=== PATIENT | female | born 1990 | race Caucasian/White ===

== ENCOUNTER 2016-09-16 10:20 | Emergency (ER) | payer BC ==
[2016-09-16 10:27] VITALS: BP 147/79
--- NOTE | 2016-09-16 10:28 | ED ---
Lower Extremity - HPI Summary HPI Summary: 26 YEAR OLD FEMALE PRESENTS WITH LEFT HEEL PAIN. - History of Current Complaint Chief Complaint: UCLowerExtremity Stated Complaint: LEFT FOOT INJURY Time Seen by Provider: 09/16/16 10:27 - Allergies/Home Medications Allergies/Adverse Reactions: Allergies Allergy/AdvReac Type Severity Reaction Status Date / Time Oxycodone [From Roxicet] Allergy See Comment Verified 09/16/16 10:27 Penicillins [PCN] Allergy Unknown Verified 09/16/16 10:27 Reaction Details Home Medications: Home Medications Oral Control 1 tab PO DAILY 09/16/16 [History Confirmed 09/16/16] PMH/Surg Hx/FS Hx/Imm Hx Previously Healthy: Yes - Surgical History Surgery Procedure, Year, and Place: T&A Infectious Disease History: No Infectious Disease History: Denies: Traveled Outside the in Last 30 Days - Social History Alcohol Use: Occasionally Substance Use Type: Reports: None Smoking Status (MU): Never Smoked Tobacco Review of Systems Constitutional: Negative Eyes: Negative ENT: Negative Respiratory: Negative Gastrointestinal: Negative Genitourinary: Negative Positive: Other - left heel pain All Other Systems Reviewed And Are Negative: Yes Physical Exam Triage Information Reviewed: Yes Vital Signs On Initial Exam: Initial Vitals Temp Pulse Resp BP Pulse Ox 36.3 C 69 14 147/79 98 09/16/16 10:24 09/16/16 10:24 09/16/16 10:24 09/16/16 10:24 09/16/16 10:24 Vital Signs Reviewed: Yes Neck: Positive: Supple Cardiovascular: Positive: Normal Abdomen Description: Positive: Nontender Musculoskeletal: Positive: Other - left heel pain Neurological: Positive: Normal Diagnostics - Vital Signs Vital Signs Temp Pulse Resp BP Pulse Ox 09/16/16 10:24 36.3 C 69 14 147/79 98 - Laboratory Lab Statement: Any lab studies that have been ordered have been reviewed, and results considered in the medical decision making process. Lower Extremity Course/Dx - Diagnoses Provider Diagnoses: Heel spur Discharge - Discharge Plan Condition: Stable Disposition: HOME Prescriptions: Methylprednisolone [Medrol Dosepak 4 MG*] 4 mg PO .SEE JUVENTINO INSTRUCTION #21 tab Patient Education Materials: Ankle Sprain (ED), Heel Spur (ED) Referrals: No Primary Care Phys,NOPCP [Primary Care Provider] -
--- NOTE | 2016-09-16 10:48 | RAD ---
Indication: Left heel pain. 3 views of left foot demonstrates inferior calcaneal spur. No fracture is identified. IMPRESSION: Inferior calcaneal spur without evidence of fracture.
== END 2016-09-16 10:55 | disposition home or self-care (01) ==
LOC: UCCORT 10:20
DX: M77.32 Calcaneal spur, left foot (principal); Z88.5 Allergy status to narcotic agent; Z88.0 Allergy status to penicillin
CPT/HCPCS: 99212; G0463

== ENCOUNTER 2017-02-23 15:42 | Emergency (ER) | payer BC ==
[2017-02-23 16:15] VITALS: BP 159/83
--- NOTE | 2017-02-23 16:30 | UC ---
FLU HPI - HPI Summary HPI Summary: pt c/o sudden onset of body aches chest congestion, nasal congestion, chills X 1 day. - History of Current Complaint Stated Complaint: FEVER/ACHES Time Seen by Provider: 02/23/17 16:04 Hx Obtained From: Patient Hx Last Menstrual Period: 01/14/17 ?: No Onset/Duration: Sudden Onset, Lasting Days - 1, Still Present Severity Currently: Moderate Severity Initially: Mild Associated Signs & Symptoms: Positive: Myalgia, Cough, Nasal Congestion - Risk Factors Influenza Risk Factors: Negative - Allergy/Home Medications Allergies/Adverse Reactions: Allergies Allergy/AdvReac Type Severity Reaction Status Date / Time Penicillins [PCN] Allergy Unknown Verified 02/23/17 16:15 Reaction Details Oxycodone [From Roxicet] AdvReac See Comment Verified 02/23/17 16:15 Home Medications: Home Medications Beclomethasone Dipropionate (N [Qnasl] 80 mcg NA DAILY 02/23/17 [History Confirmed 02/23/17] Dextromethorphan-Phenylephrine [Vita-[place] Plus Severe 10-5-325 mg] 1 cap PO PRN 02/23/17 [History] PMH/Surg Hx/FS Hx/Imm Hx Previously Healthy: Yes - Surgical History Surgical History: Yes Surgery Procedure, Year, and Place: T&A - Family History Known Family History: Positive: Cardiac Disease - Social History Occupation: Employed Full-time Lives: With Family Alcohol Use: Occasionally Substance Use Type: None Smoking Status (MU): Former Smoker Type: Cigarettes Amount Used/How Often: 1/4-1/2 ppd Length of Time of Smoking/Using Tobacco: since age 20 Have You Smoked in the Last Year: Yes When Did the Patient Quit Smoking/Using Tobacco: 02/15/17 - Immunization History Most Recent Influenza Vaccination: 11/30 Review of Systems Constitutional: Chills, Fatigue Skin: Negative Eyes: Negative ENT: Sore Throat, Sinus Congestion, Sinus Pain/Tenderness Respiratory: Cough Cardiovascular: Negative Gastrointestinal: Negative Genitourinary: Negative Motor: Negative Neurovascular: Negative Musculoskeletal: Negative Neurological: Headache Psychological: Negative Is Patient Immunocompromised?: No All Other Systems Reviewed And Are Negative: Yes Physical Exam Triage Information Reviewed: Yes Appearance: Ill-Appearing Vital Signs: Initial Vital Signs Temp 98.8 F 01/10/18 16:06 Pulse 89 02/23/17 16:06 Resp 16 02/23/17 16:06 BP 159/83 02/23/17 16:06 Pulse Ox 98 02/23/17 16:06 Vital Signs Reviewed: Yes Eye Exam: Normal ENT Exam: Other ENT: Positive: Nasal congestion, Sinus tenderness Dental Exam: Normal Neck exam: Normal Respiratory Exam: Normal Cardiovascular Exam: Normal Musculoskeletal Exam: Normal Neurological Exam: Normal Psychological Exam: Normal Skin Exam: Normal Flu Course/Dx - Differential Dx/Diagnosis Differential Diagnosis/HQI/PQRI: Influenza, Upper Respiratory Infection Provider Diagnoses: Influenza A Discharge - Discharge Plan Condition: Stable Disposition: HOME Prescriptions: Oseltamivir CAP* [Tamiflu CAP*] 75 mg PO Q12H #10 cap Patient Education Materials: Influenza (ED) Forms: *Work Release Referrals: No Primary Care Phys,NOPCP [Primary Care Provider] - If Needed
== END 2017-02-23 16:51 | disposition home or self-care (01) ==
LOC: UCCORT 15:42
DX: J11.1 Influenza due to unidentified influenza virus with other respiratory manifestations (principal); Z88.5 Allergy status to narcotic agent; Z88.0 Allergy status to penicillin; Z87.891 Personal history of nicotine dependence
CPT/HCPCS: 87502; 99212; G0463

== ENCOUNTER 2017-07-05 14:37 | Emergency (ER) | payer BC ==
[2017-07-05 15:00] VITALS: BP 137/68
--- NOTE | 2017-07-05 15:08 | UC ---
General HPI - HPI Summary HPI Summary: pt is c/o sinus congestion and pain with green discharge. also had a little blood from her nose once. she takes allery medication routinely(zyrtec). pt reports a long hx of sinus infections. she does not use nasal steroid-can't stand the smell of flonase. no fever or sneezing. onset yesterday. - History of Current Complaint Stated Complaint: SINUSES Time Seen by Provider: 07/05/17 14:59 Hx Obtained From: Patient Hx Last Menstrual Period: 01/14/17 Onset/Duration: Gradual Onset Timing: Constant Aggravating: nothing Alleviating: nothing Associated Signs & Symptoms: Negative: Fever - Allergy/Home Medications Allergies/Adverse Reactions: Allergies Allergy/AdvReac Type Severity Reaction Status Date / Time oxycodone Allergy Unknown Verified 07/05/17 14:58 Reaction Details Penicillins Allergy Unknown Verified 07/05/17 14:58 Reaction Details Home Medications: Home Medications D-Methorphan/PE/Acetaminophen [Vita-[place] Plus Severe] 1 cap PO ONCE 07/05/17 [History Confirmed 07/05/17] PMH/Surg Hx/FS Hx/Imm Hx - Additional Past Medical History Additional PMH: allergies, sinusitis - Surgical History Surgical History: Yes Surgery Procedure, Year, and Place: T&A - Family History Known Family History: Positive: Cardiac Disease - Social History Occupation: Employed Full-time Lives: With Family Alcohol Use: Occasionally Substance Use Type: None Smoking Status (MU): Former Smoker Type: Cigarettes Amount Used/How Often: 1/4-1/2 ppd Length of Time of Smoking/Using Tobacco: since age 20 Have You Smoked in the Last Year: Yes When Did the Patient Quit Smoking/Using Tobacco: 02/15/17 - Immunization History Most Recent Influenza Vaccination: 11/30 Vaccination Up to Date: Yes Review of Systems Constitutional: Negative Skin: Negative Eyes: Negative ENT: Nasal Discharge, Sinus Congestion, Sinus Pain/Tenderness Respiratory: Negative Cardiovascular: Negative Gastrointestinal: Negative Genitourinary: Negative Motor: Negative Neurovascular: Negative Musculoskeletal: Negative Neurological: Negative Psychological: Negative Is Patient Immunocompromised?: No All Other Systems Reviewed And Are Negative: Yes Physical Exam Triage Information Reviewed: Yes Appearance: Well-Appearing Vital Signs Reviewed: Yes Eyes: Positive: Conjunctiva Clear ENT: Positive: Pharynx normal, Nasal congestion, TMs normal, Sinus tenderness. Negative: Nasal drainage Neck: Positive: Supple, Nontender, No Lymphadenopathy Respiratory: Positive: Chest non-tender, Lungs clear Cardiovascular: Positive: RRR, No Murmur Abdomen Description: Positive: Nontender, No Organomegaly, Soft Bowel Sounds: Positive: Present Musculoskeletal: Positive: ROM Intact Neurological: Positive: Alert Psychological: Positive: Age Appropriate Behavior Skin Exam: Normal Course/Dx - Course Course Of Treatment: will attempt nasal steroid and decongestant. if no relief or there is worsening, pt will add augmentin. states takes augmentin with no issues. pt of [facility] thus will refer there - Differential Dx - Multi-Symptom Provider Diagnoses: sinusitis Discharge - Sign-Out/Discharge Documenting (check all that apply): Discharge/Admit/Transfer - Discharge Plan Condition: Stable Disposition: HOME Prescriptions: Amoxicillin/Clavulanate TAB* [Augmentin TAB 875*] 875 mg PO BID #20 tab Patient Education Materials: Sinusitis (ED) Referrals: OSCAR Acevedo [Medical Doctor] - 7 Days Additional Instructions: START OVER THE COUNTER NASACORT AND DECONGESTANTS. IF SYMPTOMS NOT IMPROVING IN 3 DAYS START THE AUGMENTIN. START IT SOONER IF WORSENING - Billing Disposition and Condition Condition: STABLE Disposition: HOME
== END 2017-07-05 15:16 | disposition home or self-care (01) ==
LOC: UCCORT 14:37
DX: J32.9 Chronic sinusitis, unspecified (principal); Z88.5 Allergy status to narcotic agent; Z88.0 Allergy status to penicillin; Z87.891 Personal history of nicotine dependence
CPT/HCPCS: 99212; G0463

== ENCOUNTER 2019-04-20 10:37 | Day surgery (SDC) | payer BC ==
[~2019-04-20 10:37] MED LIST: Buffered Lidocaine 1% SYRIN* 1 ML/SYRINGE INTRADERM ONE; Famotidine IV* 10 MG/ML 2 ML (20 mg) IV ONE; Lactated Ringers 1000 ML Bag* 1,000 ML IV SCH
[2019-04-20] MEDS ORDERED: Naloxone* 0.4 MG/ML 1 ML VIAL IV PRN (11:27)
[2019-04-20] MEDS ORDERED: Acetaminophen TAB* 325 MG PO PRN (11:27)
[2019-04-20] MEDS ORDERED: Ketorolac INJ* 30 MG/ML 1 ML VIAL IV PRN (11:27)
[2019-04-20] MEDS ORDERED: Ondansetron INJ* 2 MG/ML VIAL IV PRN (11:27)
[2019-04-20] MEDS ORDERED: fentaNYL* 50 MCG/ML 2 ML VIAL (100 MCG VIAL) IV PRN (11:27)
[2019-04-20] MEDS ORDERED: Famotidine IV* 10 MG/ML 2 ML (20 mg) ONE (12:03)
[2019-04-20] MEDS ORDERED: Midazolam* 1 MG/ML 5 ML VIAL (5 MG) ONE (13:25)
[2019-04-20] MEDS ORDERED: fentaNYL* 50 MCG/ML 2 ML VIAL (100 MCG VIAL) ONE (13:25)
[2019-04-20] MEDS ORDERED: Lidocaine 2% PF * 5 ML VIAL ONE (13:44)
[2019-04-20] MEDS ORDERED: Propofol* 10 MG/ML 20 ML BTL ONE ×3 (13:44→13:57)
[2019-04-20] MEDS ORDERED: Midazolam* 1 MG/ML 2 ML VIAL (2 MG) ONE (14:01)
[2019-04-20 15:32] VITALS: BP 163/82
--- NOTE | 2019-04-21 04:53 | PRO ---
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 Marco Stanford) comes in for pre-bariatric assessment. She does have a history of some acid indigestion from time to time. She will take Tums rarely. It is a burning feeling with some regurgitation. She takes Tums once or twice a week. She had taken Nexium or Prilosec in the years passed, but has never stuck with them persistently. She also has a history of a low iron total, although her blood count is said to be normal. Most recent CBC 03/29/19 shows hemoglobin 13.7, hematocrit 40, MCV 86, and ferritin 67.1. Previous iron study had shown 12% saturation in October 2018 with iron 37, TIBC 316. There is no past history of surgery. Informed consent was obtained from the patient in conversation with her significant other present. ENDOSCOPIST: Dr. Rao. MEDICATIONS: Monitored anesthesia per Dr. Ruiz. FINDINGS: She is a morbidly obese woman in no overt distress. It had been difficult to start her IV with at least 4 attempts. In the operating room, there was some question of the flow of the IV, though without pain, it seemed to be flowing rapidly. Post procedure, it was appreciated that this was subcutaneous infiltration. The arm was elevated post procedure. EGD: Larynx - symmetric limited views. Esophagus - easily entered and the mucosa is normal in the upper, mid, and lower esophagus with the EG junction snug at 39. There were no erosions and no scarring and no fundic prolapse. Stomach - generally normal mucosa in the cardia, fundus, body, and antrum. A CLOtest was taken in the mid gastric body. Duodenum - the pylorus, bulb, and second through fourth portions were normal. IMPRESSION: 1. Normal EGD. Addendum: Clotest negative 2. Gastroesophageal reflux disease - mild and nonerosive and without scarring. 3. Intravenous infiltration - being monitored in the postop area and her significant other was informed a slight delay and return to complete alertness could be anticipated. [id number]/[facility] #: [id number] [facility]
== END 2019-04-20 16:54 | disposition home or self-care (01) ==
LOC: OR 10:37
PROVIDERS: ATTEND Internal Medicine Gastroenterology
DX: K21.0 Gastro-esophageal reflux disease with esophagitis (principal); D64.9 Anemia, unspecified; Z01.818 Encounter for other preprocedural examination; E66.01 Morbid (severe) obesity due to excess calories; F41.8 Other specified anxiety disorders
CPT/HCPCS: 81025; 87077; J2250; J2704; J3010